=== PATIENT | male | born 1985 | race African-American/Black ===

== ENCOUNTER 2024-05-21 19:34 | Emergency (ER) | payer OTHER ==
[~2024-05-21] VITALS: Ht 175.2 cm; Wt 113.4 kg
[2024-05-21] MEDS ORDERED: DEPAKOTE ER500 MG PO (19:54)
[2024-05-21] MEDS ORDERED: DEPAKOTE500 M2 PO (19:55)
[2024-05-21] MEDS ORDERED: NAPROSYN500 MG PO (22:09)
[2024-05-21] MEDS ORDERED: Ketorolac Tromethamine 30 MG/ML VIAL IM ONE (22:10)
== END 2024-05-21 22:45 | disposition home or self-care (01) ==
LOC: ED 19:34
DX: M25.511 Pain in right shoulder (principal)